=== PATIENT | male | born 1945 | race Two or more races ===

== ENCOUNTER 2018-03-05 06:47 | Day surgery (SDC) | payer OTHER ==
[~2018-03-05 06:47] MED LIST: ASA81 MG; FORTAMET1000 MG; GLIPIZIDE10 MG; LIPITOR40 MG; LOTREL 10-20 M1 EACH
== END 2018-03-05 14:15 | disposition home or self-care (01) ==
LOC: CIR.AMB 06:47
DX: M48.07 Spinal stenosis, lumbosacral region (principal)